=== PATIENT | male | born 1990 | race Caucasian/White ===

== ENCOUNTER 2016-07-15 19:08 | Emergency (ER) | payer OTHER ==
[2016-07-15 19:21] VITALS: TEMP 96.8
[2016-07-15 20:25] VITALS: BP 110/77; PULSE 90; RESP 18; O2SAT 92
--- NOTE | 2016-07-15 21:06 | EDPHY ---
H & P Stated Complaint: heroin OD - Personal History Current Tetanus Diphtheria and Acellular Pertussis (TDAP): Yes - Medical/Surgical History Hx Asthma: Yes Hx Chronic Respiratory Disease: No Hx Diabetes: No Hx Cardiac Disease: No Hx Renal Disease: No Hx Cirrhosis: No Hx Alcoholism: No Hx HIV/AIDS: No Hx Splenectomy or Spleen Trauma: No Other PMH: mild asthma - Social History Smoking Status: Current every day smoker HPI/ROS: Chief complaint: Heroin overdose History of present illness: 26-year-old male brought to the emergency department by EMS for evaluation and treatment of a heroin overdose. Patient admits to injecting heroin. He was found by his brother who called 911. EMS did provide patient with 0.5 mg Narcan IM and 0.5 mg of Narcan IV with return to normal baseline. On my evaluation patient states he feels well. He has no complaints. Review of systems: A 10 point review of systems was obtained and other than described above was negative (Jimmie Wilks) - Physical Exam Exam: General Appearance: Alert, nontoxic. Eyes: Pupils equal and round no pallor or injection. ENT, Mouth: Mucous membranes moist. Respiratory: There are no retractions, lungs are clear to auscultation. Cardiovascular: Regular rate and rhythm. Gastrointestinal: Abdomen is soft and nontender, no masses, bowel sounds normal. Neurological: Alert and oriented x4. Strength and sensation intact and symmetrical. Ambulating without difficulty. Skin: Warm and dry, no rashes. Musculoskeletal: Neck is supple nontender. Extremities are symmetrical, full range of motion. Psychiatric: Patient is oriented X 3, there is no agitation. (Jimmie Wilks) Constitutional: Initial Vital Signs Temperature (C) 36 C 07/15/16 19:20 Heart Rate 89 07/15/16 19:20 Respiratory Rate 20 07/15/16 19:20 Blood Pressure 151/94 H 07/15/16 19:20 O2 Sat (%) 95 07/15/16 19:20 O2 Delivery Mode Room Air Allergies/Adverse Reactions: No Known Allergies Allergy (Unverified 07/15/16 19:19) Home Medications: Medication Instructions Recorded NK [No Known Home Meds] 07/15/16 Medical Decision Making ED Course/Re-evaluation: Patient seen under the supervision of my secondary supervising physician Dr. Mikel Porter. Patient brought to the emergency department by EMS after overdosing on heroin. He was been provided with Narcan with return to baseline. He has no complaints. I have discussed with the patient I would like to observe him for a number of hours to ensure he does have recurrence of symptoms once Narcan wears off. He initially voiced understanding. Ultimately however patient eloped from the emergency department. Patient was competent to understand my reasoning for why I wanted to watch him for awhile. He was competent to make his own decisions. (Jimmie Wilks) I did not see this patient while he was in the emergency department. However his care was discussed with the PA while the patient was in the department. I agree with treatment plan and management (Mikel Porter) Departure - Departure Disposition: Home, Routine, Self-Care Clinical Impression: Heroin overdose Condition: Good Referrals: NONE *PRIMARY CARE P,. [Primary Care Provider] - As per Instructions
== END 2016-07-15 20:37 | disposition home or self-care (01) ==
LOC: EDUNIT#
DX: T40.1X1A Poisoning by heroin, accidental (unintentional), initial encounter (principal); J45.909 Unspecified asthma, uncomplicated; F17.200 Nicotine dependence, unspecified, uncomplicated